=== PATIENT | female | born 1935 | race African-American/Black ===

== ENCOUNTER 2016-08-15 06:25 | Emergency (ER) | payer MEDICARE ==
[2015-11-16 13:45] VITALS: BMI 29.5
[~2016-08-15 06:25] MED LIST: ALDACTONE25 MG PO; ASPIRIN81 MG PO; COZAAR100 MG PO; LANTUS INSULIN10 ML SC; NORVASC10 MG PO; PLAVIX75 MG PO; XANAX0.25 MG PO
== END 2016-08-15 08:28 | disposition home or self-care (01) ==
LOC: D.ER 06:25
DX: S40.011A Contusion of right shoulder, initial encounter (principal); W19.XXXA Unspecified fall, initial encounter; Y93.89 Activity, other specified; Y92.019 Unspecified place in single-family (private) house as the place of occurrence of the external cause; I10 Essential (primary) hypertension; E11.9 Type 2 diabetes mellitus without complications; Z79.4 Long term (current) use of insulin

== ENCOUNTER 2016-12-01 16:52 | Outpatient (CLI) | payer MEDICARE ==
[2015-11-16 13:45] VITALS: BMI 29.5
== END 2016-12-01 17:32 ==
LOC: D.MAMMO 16:52
DX: Z12.31 Encounter for screening mammogram for malignant neoplasm of breast (principal)

== ENCOUNTER → 2017-02-16 19:12 | Outpatient (CLI) | payer MEDICARE ==
[2015-11-16 13:45] VITALS: BMI 29.5
[2017-02-16 20:03] LABS: ALBUMIN 4.2 g/dL (3.4-5.0); ANION GAP 14.5 mmol/L (8-16); BILIRUBIN - TOTAL 0.4 mg/dL (0.2-1.3); CALCIUM 10.5 mg/dL (8.5-10.1); CARBON DIOXIDE 25.7 mmol/L (21.0-32.0); CHOL - HDL RATIO 2.6 ratio (2.3-4.1); CREATININE - SERUM 1.1 mg/dL (0.6-1.3); LDL-HDL RATIO 1.2 ratio (1.5-3.5); POTASSIUM - SERUM 4.2 mmol/L (3.5-5.1); PROTEIN - SERUM 7.5 g/dL (6.4-8.2)
== END | disposition home or self-care (01) ==
LOC: D.LABREF 19:12
PROVIDERS: Family Medicine
DX: E11.65 Type 2 diabetes mellitus with hyperglycemia (principal); E55.9 Vitamin D deficiency, unspecified; R60.0 Localized edema

== ENCOUNTER → 2018-01-19 12:44 | Outpatient (CLI) | payer MEDICARE ==
[2015-11-16 13:45] VITALS: BMI 29.5
== END | disposition home or self-care (01) ==
LOC: D.US 12:44
DX: R79.1 Abnormal coagulation profile (principal)

== ENCOUNTER → 2018-10-16 08:50 | Outpatient (CLI) | payer MEDICARE ==
[2015-11-16 13:45] VITALS: BMI 29.5
== END | disposition home or self-care (01) ==
LOC: D.US 08:50
PROVIDERS: ATTEND Internal Medicine Nephrology
DX: I12.9 Hypertensive chronic kidney disease with stage 1 through stage 4 chronic kidney disease, or unspecified chronic kidney disease (principal); N18.4 Chronic kidney disease, stage 4 (severe); E03.9 Hypothyroidism, unspecified; R80.0 Isolated proteinuria

== ENCOUNTER → 2018-10-18 09:51 | Outpatient (CLI) | payer MEDICARE ==
[2015-11-16 13:45] VITALS: BMI 29.5
--- NOTE | 2018-10-23 12:26 | EC ---
PATIENT:REBECCA HEALY DATE OF SERVICE: 10/18/18 SEX: F MEDICAL RECORD: [id number] DATE OF : 39 LOCATION:D[facility] AGE OF PATIENT: 83 ADMISSION DATE: 10/18/18 REFERRING PHYSICIAN: INTERPRETING PHYSICIAN: LINDEN DE GUZMAN MD ECHOCARDIOGRAM REPORT ECHO CHARGES 4 ECHO COMPLETE Date: 10/18/18 CLINICAL DIAGNOSIS: CAD HX OF HTN ECHOCARDIOGRAPHIC MEASUREMENTS (adult normal given) AC root (d.<3.7cm) 3.3 cm LV Septum d (<1.2 cm> 1.3 cm Valve Excursion 1.6 cm LV Septum (systole) 1.5 cm Left Atria (s.<4.0cm> 3.7 cm LVPW d(<1.2cm) 1.7 cm RV (d.<2.3cm) 3.3 cm LVPW (sytole) 1.9 cm LV diastole(<5.6CM) 4.9 cm MV E-F(>70mm/sec) cm LV systole 3.4 cm LVOT Diameter 1.8 cm MV exc.(>10mm) 1.4 cm Est.ejection fraction (50-75%) % DOPPLER: LVIT cm/sec A 115 cm/sec E 86.0 cm/sec LA cm/sec RVSP 28 mmHg LVOT 122 cm/sec AOP1/2T m/s Asc. Ao 160 cm/sec RVOT 92 cm/sec RA cm/sec PA 131 cm/sec AV Gradient Peak 10.24mmHg AV Mean 5.48 mmHg AV Area 1.6 cm MV Gradient Peak 8.90 mmHg MV Mean 2.45 mmHg MV Area cm COMMENTS: Interventional Radiology Rn: Erasmo ALFARO Private Pilot: 3 Dr. Patrick TAPE# PACS Pericardial Effusion N DATE OF SERVICE: 10/18/2018 Adequate 2-D echo, color-flow and spectral Doppler, and M-mode. Mild LVH. LV internal dimensions are normal. Wall motion is normal. EF is greater than or equal to 55%. Aortic valve sclerosis without stenosis by Doppler interrogation. Left atrium is normal at 3.7 cm. Mitral valve shows no prolapse. Trace MR. Right-sided chambers are grossly normal. Mild TR. TRANSINT:[id number] Voice Confirmation ID: [id number] DOCUMENT ID: [id number] ECHOCARDIOGRAM REPORT [id number] REBECCA HEALY GREGORY A MD at 1226 CC: [id number] DICTATION DATE: 10/22/18 1336 WEB SITE MANAGER: 10/22/18 1450 DEP CLI 10/18/18 [address] [place] [address]
== END | disposition home or self-care (01) ==
LOC: D.HCCARDIO 09:51
PROVIDERS: ATTEND Internal Medicine Interventional Cardiology
DX: I25.10 Atherosclerotic heart disease of native coronary artery without angina pectoris (principal)

== ENCOUNTER 2019-02-18 09:00 | Outpatient (CLI) | payer MEDICARE ==
[~2019-02-18] VITALS: Ht 175.3 cm; Wt 90.9 kg
[2019-02-18 09:51] VITALS: Ht 175.3 cm; Wt 90.9 kg
--- NOTE | 2019-02-18 11:15 | NUR ---
1000 ROOM CHECK, IV INFUSING WITHOUT PROBLEMS 1030 RATE INCREASED, INFUSIG WELL 1100 IV AT OPEN RATE DENIES PROBLEMS 1115 NEAR COMPLETION
--- NOTE | 2019-02-18 11:23 | NUR ---
1120 IV SALINE LOCK, CT NOTIFIED (JOANNE BELLE RN). PT. UP TO BR VOIDS.
== END 2019-02-18 11:40 | disposition home or self-care (01) ==
LOC: D.CT 09:00
PROVIDERS: ATTEND Internal Medicine Nephrology
DX: N28.1 Cyst of kidney, acquired (principal)

== ENCOUNTER → 2019-10-30 10:06 | Outpatient (CLI) | payer MEDICARE ==
[2019-02-18 09:51] VITALS: BMI 29.6
--- NOTE | 2019-10-31 10:33 | EC ---
PATIENT:REBECCA HEALY DATE OF SERVICE: 10/30/19 SEX: F MEDICAL RECORD: [id number] DATE OF : 39 [facility] AGE [facility] PAT[facility]: 84 ADMISSION DATE: 10/30/19 REFERRING PHYSICIAN: INTERPRETING PHYSICIAN: LINDEN DE GUZMAN MD ECHOCARDIOGRAM REPORT ECHO CHARGES 4 ECHO COMPLETE Date: 10/30/19 CLINICAL DIAGNOSIS: CAD ECHOCARDIOGRAPHIC MEASUREMENTS (adult normal given) AC root (d.<3.7cm) 2.6 cm LV Septum d (<1.2 cm> 1.3 cm Valve Excursion 1.4 cm LV Septum (systole) 1.7 cm Left Atria (s.<4.0cm> 4.0 cm LVPW d(<1.2cm) 1.3 cm RV (d.<2.3cm) 3.7 cm LVPW (sytole) 1.5 cm LV diastole(<5.6CM) 4.5 cm MV E-F(>70mm/sec) cm LV systole 2.3 cm LVOT Diameter 1.7 cm MV exc.(>10mm) 1.4 cm Est.ejection fraction (50-75%) % DOPPLER: LVIT cm/sec A 137.0cm/sec E 77.0 cm/sec LA cm/sec RVSP 34 mmHg LVOT 136 cm/sec AOP1/2T m/s Asc. Ao 170 cm/sec RVOT 84 cm/sec RA cm/sec PA 126 cm/sec AV Gradient Peak 11.51mmHg AV Mean 6.47 mmHg AV Area 1.9 cm MV Gradient Peak 9.19 mmHg MV Mean 2.94 mmHg MV Area cm COMMENTS: Cocktail Waitress: 2 JOSE ALFARO Flipping Machine Operator: 3 Dr. Patrick TAPE# PACS Pericardial Effusion N DATE OF SERVICE: Adequate 2D, color flow imaging, spectral Doppler, and M-Mode. Borderline LVH. LV internal dimension is normal. Wall motion is normal. EF is greater than or equal to 55%. Aortic valve is tricuspid with no evidence of stenosis by Doppler interrogation. Left atrium is normal at 4.0 cm. Mitral valve shows no prolapse. Trace MR. Right-sided chambers are grossly normal. Trace TR. ECHOCARDIOGRAM REPORT [id number] REBECCA HEALY TRANSINT:[id number] Voice Confirmation ID: [id number] DOCUMENT ID: [id number] LINDEN DE GUZMAN MD at 1033 CC: [id number] DICTATION DATE: 10/31/19825 FREQUENCY CHECKER: 10/31/19 1010 [facility] CLI 10/30/19 [address] [place] [address]
== END | disposition home or self-care (01) ==
LOC: D.HCCECHO 10:06
PROVIDERS: ATTEND Internal Medicine Interventional Cardiology
DX: I25.10 Atherosclerotic heart disease of native coronary artery without angina pectoris (principal)

== ENCOUNTER 2020-01-14 13:13 | Outpatient (CLI) | payer MEDICARE ==
[~2020-01-14] VITALS: Ht 175.3 cm; Wt 90.9 kg
[2020-01-14 14:54] VITALS: Ht 175.3 cm; Wt 90.9 kg
--- NOTE | 2020-01-14 15:13 | NUR ---
1510 ADA FINGER FOOD DIET SERVED.
[2020-01-14 15:42] LABS: % SATURATION 5 % (15-55); IRON 28 ug/dl (35-150); TOTAL IRON BIND CAPACITY 482 ug/dl (260-445)
[2020-01-14 15:47] LABS: UNSAT IRON BIND CAPACITY 454 ug/dl (150-375)
--- NOTE | 2020-01-14 16:04 | NUR ---
1552 PREMEDS WERE GIVEN PER E-MAR. PT. UP TO BATHROOM, VOIDS LG. AMT. BLOOD CHECKED AT BEDSIDE BY THIS NURSE AND DAYRON KEYES RN. INITATED AT 50/CC/HR.
--- NOTE | 2020-01-14 16:09 | NUR ---
1605 DOSING, AROUSES WITH V.S. CHECK, DENIES PROBLEMS, RATE INCREASED TO 200/CC/HR.
--- NOTE | 2020-01-14 16:47 | NUR ---
1647 DENIES PROBLEMS WITH TRANSFUSION, IV SITE GOOD, RATE INCREASED TO 250/CC/HR.
--- NOTE | 2020-01-14 17:09 | NUR ---
6020 ROOM CHECK, PT. WATCHING TV. STATES " I'M DOING GOOD." BLOOD IS INFUSING WELL.
--- NOTE | 2020-01-14 17:27 | NUR ---
1727 1ST UNIT BLOOD COMPLETED, LINE BEING FLUSHED WITH NS.
--- NOTE | 2020-01-14 17:45 | NUR ---
1734 2ND UNIT CHECKED AT BEDSIDE BY THIS NURSE AND NIMESH JONES RN, INITIATED AT 50/CC/HR. DENIES NEEDS.
--- NOTE | 2020-01-14 17:59 | NUR ---
1755 DENIES PROBLEMS, RATE INCREASED TO 275/CC/HR. IV SITE GOOD.
--- NOTE | 2020-01-14 18:40 | NUR ---
1835 ROOM CHECK, BLOOD GOING WELL, PT REQUESTS SOMETHING TO EAT, PEANUT BUTTER AND CRACKERS SERVED.
--- NOTE | 2020-01-14 18:45 | NUR ---
1845 PT'S SON ARRIVED TO ROOM.
--- NOTE | 2020-01-14 19:15 | NUR ---
190 BLOOD HAS COMPLETED, LINE BEING FLUSHED WITH NS. PT. UP TO BR VOIDS LG. AMT. DENIES PROBLEMS WITH TRANSFUSION. STATES SHE IS DUE HER BP PILL AND WILL GO HOME AND TAKE HER BP PILL.
--- NOTE | 2020-01-14 19:40 | NUR ---
1930 IV DC'D WITH CATH INTACT. DC INSTS REVIEWED, VOICED UNDERSTANDING 193 TO LAB TO HAVE LABS DRAWN THAT WERE UNABLE TO OBTAIN PREVIOUSLY. DC INSTS. GIVEN. VOICED UNDERSTANDING
[2020-01-14 20:46] LABS: BILIRUBIN - TOTAL 0.58 mg/dL (0.2-1.3); THYROID STIMULATING HORMONE 0.22 uIU/mL (0.36-3.74)
[2020-01-14 21:44] LABS: ERYTHROCYTE SEDIMENTATION RATE 11 mm/hr (0-30)
== END 2020-01-14 19:35 | disposition home or self-care (01) ==
LOC: D.OPS 13:13
PROVIDERS: ATTEND Internal Medicine Hematology & Oncology
DX: D64.9 Anemia, unspecified (principal)

== ENCOUNTER 2020-08-23 12:07 | Inpatient (IN) | payer MEDICARE ==
[~2020-08-23] VITALS: Ht 167.6 cm; Wt 87.1 kg
[2020-08-23 12:30] VITALS: BP 197/79
[2020-08-23 13:00] LABS: BASOPHILS 0.1 % (0-2); EOSINOPHILS 0.1 % (0-7); HEMATOCRIT 32.8 % (36.0-48.0); HEMOGLOBIN 10.8 g/dL (12-16); IMMATURE GRANULOCYTES 0.5 % (0-5); LYMPHOCYTE ABS# 0.78 10x3/uL (1.18-3.74); LYMPHOCYTES 8.4 % (15-50); MCH 26.6 pg (26.0-34.0); MCHC 32.9 g/dL (31.0-37.0); MCV 80.8 fL (80.0-100.0); MEAN PLATELET VOLUME 9.2 fL (7.4-10.4); MONOCYTES 6.9 % (2-11); NEUTROPHIL ABS# 7.75 10x3/uL (1.56-6.13); RBC 4.06 10x6/uL (4.00-5.40); RDW 21.2 % (11.5-14.5); WBC 9.2 10x3/uL (4.8-10.8)
[2020-08-23 13:01] LABS: PLATELET COUNT 221 10x3/uL (130-400)
[2020-08-23 13:01] LABS: BILIRUBIN NEGATIVE (NEGATIVE); KETONE NEGATIVE (NEGATIVE); NITRITE NEGATIVE (NEGATIVE); UROBILINOGEN NORMAL mg/dL (< 2)
[2020-08-23 13:03] LABS: BACTERIA MODERATE HPF (NONE SEEN); SQUAMOUS EPITHELIAL 0-5 HPF (0-4)
[2020-08-23 13:13] LABS: ANION GAP 14.6 mmol/L (8-16); CALCIUM 9.6 mg/dL (8.5-10.1); CARBON DIOXIDE 22.8 mmol/L (21.0-32.0); CREATININE - SERUM 2.2 mg/dL (0.6-1.3); POTASSIUM - SERUM 4.4 mmol/L (3.5-5.1)
[2020-08-23 13:19] LABS: ALBUMIN 3.4 g/dL (3.4-5.0); BILIRUBIN - TOTAL 0.36 mg/dL (0.2-1.3); MAGNESIUM - SERUM 3.3 mg/dL (1.8-2.4); PROTEIN - SERUM 7.3 g/dL (6.4-8.2)
--- NOTE | 2020-08-23 14:13 | NUR ---
PT BG WAS 243 AT THIS TIME
[2020-08-23 15:06] VITALS: BP 174/60
--- NOTE | 2020-08-23 15:13 | NUR ---
PT REPORT GIVEN TO KANA ORTIZ, VERBAL ACKNOWLEDGEMENT OBTAINED
[2020-08-23 15:30] VITALS: BP 215/72; BMI 31.0
--- NOTE | 2020-08-23 15:30 | NUR ---
RECEIVED TO ROOM 2211 VIA WC FROM ER. A/O X3. SKIN INTACT WITHOUT REDNESS EXCEPT SMALL ABRASION TO LEFT ELBOW AND RIGHT KNEE. IV TO LEFT FOREARM IS PATENT WITHOUT REDNESS AT INSERTION SITE. DENIES NEEDS.
--- NOTE | 2020-08-23 16:23 | NUR ---
BP ELEVATED AT THIS TIME. CECE SERNA APN NOTIFIED OF SAME NEW ORDERS RECEIVED. GIVNE 10MG HYDRALYZINE SLOW IVP FOR SAME. WILL MONITOR.
[2020-08-23 17:02] VITALS: BP 183/92
[2020-08-23 17:16] VITALS: BP 170/68
--- NOTE | 2020-08-23 17:19 | NUR ---
BP DOWN TO 170/68. UP TO BR WITH ONE PERSON SBA. VOIDED WITHOUT DIFFICUTLY. ATE MOST OF SUPPER. NO CHANGES NOTED.
--- NOTE | 2020-08-23 18:14 | NUR ---
ATE ABOUT 75% OF SUPPER. ASSISTED WITH BED BATH PER STAFF. NO CHANGES NOOTED. DENIES NEEDS.
[2020-08-23 20:00] VITALS: BP 137/59
--- NOTE | 2020-08-23 20:30 | NUR ---
RESTING QUIELTY WITH NO DISTRESS NOTED. BS 55 SNACK GIVEN DENIES DIZINESS AT THIS TIME.IV TO LFA INTACT WITHOUT REDNESS OR EDEMA NOTED.FALL PRECAUTIONS IN PLACE.BED ALARM ON.
[2020-08-23 20:41] LABS: % SATURATION 7 % (15-55); IRON 25 ug/dl (35-150); TOTAL IRON BIND CAPACITY 318 ug/dl (260-445); UNSAT IRON BIND CAPACITY 293 ug/dl (150-375)
[2020-08-23 20:54] LABS: APTT 33.3 SECONDS (22.8-39.4); INR 1.06 (0.85-1.17); PROTIME 12.8 SECONDS (11.6-15.0)
--- NOTE | 2020-08-23 21:30 | NUR ---
BS 111 AT THIS TIME. NO COMPALITNS VOICED,
[2020-08-24] VITALS: BP 123/45
[2020-08-24 00:31] LABS: CKMB 5.8 U/L (0.0-3.6)
[2020-08-24 00:33] LABS: CREATINE KINASE 1335 UL (21-215); TROPONIN-I 0.446 ng/mL (0.000-0.060)
--- NOTE | 2020-08-24 03:44 | NUR ---
I have reviewed this patient and I concur with the Shift Assessment completed by the Licensed Practical Nurse today this shift.
[2020-08-24 04:00] VITALS: BP 158/64
--- NOTE | 2020-08-24 05:43 | NUR ---
FSBS 24. RETAKEN X 2 PER PATIENT REQUEST WITH RESULTS 26,25. STAT GLUCOSE TO LAB WITH RESULTS AT 25. PATIENT AWAKE AND TALKING.D5W 25 ML GIVEN FOR CRITICAL GLUCOSE.SNACK GIVEN.
[2020-08-24 05:47] LABS: ALKALINE PHOSPHATASE 79 U/L (30-120); ALT (SGPT) 75 U/L (10-68); BILIRUBIN - TOTAL 0.29 mg/dL (0.2-1.3); CALCIUM 9.2 mg/dL (8.5-10.1); CARBON DIOXIDE 22.8 mmol/L (21.0-32.0); CHLORIDE - SERUM 110 mmol/L (98-107); POTASSIUM - SERUM 4.5 mmol/L (3.5-5.1); PROTEIN - SERUM 6.1 g/dL (6.4-8.2); SODIUM 142 mmol/L (136-145); UREA NITROGEN 61 mg/dL (7-18); eGFR NON AFRICAN AMERICAN 25 mL/min (90-120)
[2020-08-24 05:49] LABS: CALC OSMOLALITY 295 mosm/kg (275-300); CREATINE KINASE 1271 UL (21-215); MAGNESIUM - SERUM 3.5 mg/dL (1.8-2.4); TROPONIN-I 0.561 ng/mL (0.000-0.060)
[2020-08-24 05:51] LABS: GLUCOSE 24 mg/dL (74-106)
--- NOTE | 2020-08-24 06:20 | NUR ---
FSBS 116. STATES FEELS BETTER
[2020-08-24 07:49] VITALS: BP 178/59
[2020-08-24 10:02] LABS: BASOPHILS 0.3 % (0-2); EOSINOPHILS 0.1 % (0-7); HEMATOCRIT 33.8 % (36.0-48.0); IMMATURE GRANULOCYTES 0.3 % (0-5); LYMPHOCYTE ABS# 1.73 10x3/uL (1.18-3.74); LYMPHOCYTES 22.2 % (15-50); MCH 26.6 pg (26.0-34.0); MCHC 32.5 g/dL (31.0-37.0); MCV 81.8 fL (80.0-100.0); MEAN PLATELET VOLUME 9.8 fL (7.4-10.4); MONOCYTES 9.4 % (2-11); NEUTROPHIL ABS# 5.27 10x3/uL (1.56-6.13); NEUTROPHILS 67.7 % (40-80); PLATELET COUNT 219 10x3/uL (130-400); RBC 4.13 10x6/uL (4.00-5.40); RDW 21.5 % (11.5-14.5); WBC 7.8 10x3/uL (4.8-10.8)
[2020-08-24 12:04] VITALS: BP 159/70
[2020-08-24 12:06] LABS: CKMB 7.2 U/L (0.0-3.6)
[2020-08-24 12:07] LABS: CREATINE KINASE 1216 UL (21-215); TROPONIN-I 0.613 ng/mL (0.000-0.060)
[2020-08-24 12:57] VITALS: BMI 31.0
[2020-08-24 16:51] VITALS: BP 177/59
[2020-08-24 21:33] VITALS: BP 156/52
[2020-08-25 00:39] VITALS: BP 144/53
--- NOTE | 2020-08-25 05:00 | NUR ---
FSBS 55. MILK AND SNACK GIVEN. CPOC.
[2020-08-25 05:15] VITALS: BP 185/64
--- NOTE | 2020-08-25 05:29 | NUR ---
I have reviewed this patient and I concur with the Shift Assessment completed by the Licensed Practical Nurse today this shift.
--- NOTE | 2020-08-25 05:29 | NUR ---
I have reviewed this patient and I concur with the Shift Assessment completed by the Licensed Practical Nurse today this shift.
[2020-08-25 05:54] LABS: BASOPHILS 0.2 % (0-2); EOSINOPHILS 3.2 % (0-7); HEMATOCRIT 27.1 % (36.0-48.0); IMMATURE GRANULOCYTES 0.2 % (0-5); LYMPHOCYTE ABS# 2.15 10x3/uL (1.18-3.74); LYMPHOCYTES 36.2 % (15-50); MCH 25.9 pg (26.0-34.0); MCHC 32.1 g/dL (31.0-37.0); MCV 80.7 fL (80.0-100.0); MEAN PLATELET VOLUME 9.6 fL (7.4-10.4); MONOCYTES 13.3 % (2-11); NEUTROPHIL ABS# 2.79 10x3/uL (1.56-6.13); NEUTROPHILS 46.9 % (40-80); PLATELET COUNT 202 10x3/uL (130-400); RBC 3.36 10x6/uL (4.00-5.40); RDW 21.3 % (11.5-14.5); WBC 5.9 10x3/uL (4.8-10.8)
[2020-08-25 06:10] LABS: ALBUMIN 2.6 g/dL (3.4-5.0); ANION GAP 9.7 mmol/L (8-16); BILIRUBIN - TOTAL 0.2 mg/dL (0.2-1.3); CALCIUM 8.9 mg/dL (8.5-10.1); CARBON DIOXIDE 24.2 mmol/L (21.0-32.0); CREATININE - SERUM 2.1 mg/dL (0.6-1.3); MAGNESIUM - SERUM 2.9 mg/dL (1.8-2.4); POTASSIUM - SERUM 3.9 mmol/L (3.5-5.1); PROTEIN - SERUM 5.9 g/dL (6.4-8.2)
[2020-08-25 06:20] LABS: HEMOGLOBIN 8.7 g/dL (12-16)
--- NOTE | 2020-08-25 06:20 | NUR ---
RECHECKED FSBS, 86. CTM.
--- NOTE | 2020-08-25 06:45 | NUR ---
RECEIVED BEDSIDE REPORT. PT LAYING IN BED, A&O X4. PIV TO LEFT FA, PATENT AND INFUSING, NO REDNESS OR SWELLLING. PT ABLE TO AMBULATE AD EMIL. EDUCATED PT ON CL AND NEEDS, VERBALIZED UNDERSTANDING. BED LOW, CL IN REACH.
[2020-08-25 07:43] VITALS: BP 177/54
[2020-08-25 12:35] VITALS: BP 134/59; BP 145/68
[2020-08-25 13:54] VITALS: Ht 167.6 cm; Wt 87.1 kg
[2020-08-25 15:00] VITALS: BP 140/62
--- NOTE | 2020-08-26 02:11 | NUR ---
REC;D WALKING ROUNDS CHGE OF SHIFT.EYES CLOSED RESP. DEEP AND EVEN.WILL CONTINUE TO MONITOR FOR ANY CHGES AND FOLLOW CURRENT PLAN OF CARE.
--- NOTE | 2020-08-26 05:00 | NUR ---
I have reviewed this patient and I concur with the Shift Assessment completed by the Licensed Practical Nurse today this shift.
[2020-08-26 05:36] LABS: MCH 26.2 pg (26.0-34.0); MCHC 30.8 g/dL (31.0-37.0); MCV 85.2 fL (80.0-100.0); MEAN PLATELET VOLUME 10.4 fL (7.4-10.4); NEUTROPHILS 55.2 % (40-80); PLATELET COUNT 176 10x3/uL (130-400); RBC 3.05 10x6/uL (4.00-5.40); RDW 21.8 % (11.5-14.5); WBC 4.9 10x3/uL (4.8-10.8)
[2020-08-26 05:51] LABS: ALBUMIN 2.5 g/dL (3.4-5.0); ANION GAP 11.6 mmol/L (8-16); BILIRUBIN - TOTAL 0.21 mg/dL (0.2-1.3); CALCIUM 8.8 mg/dL (8.5-10.1); CARBON DIOXIDE 23.5 mmol/L (21.0-32.0); MAGNESIUM - SERUM 2.7 mg/dL (1.8-2.4); POTASSIUM - SERUM 4.1 mmol/L (3.5-5.1); PROTEIN - SERUM 5.7 g/dL (6.4-8.2)
[2020-08-26 08:17] VITALS: BP 169/52
[2020-08-26 12:12] VITALS: BP 174/62
--- NOTE | 2020-08-26 13:28 | NUR ---
REHAB PRESCREENING Rehab referral received and chart reviewed. PT and OT have signed off on this patient. She does not meet admission criteria for ARU. Thank you for this referral! Anahi Osullivan, MACHINE BINDER STRIPPER Rehab PD
[2020-08-26 17:30] VITALS: BP 163/61
--- NOTE | 2020-08-26 19:00 | NUR ---
BEDSIDE SHIFT REPORT COMPLETED PT AWAKE ALERT SITTING IN CHAIR AT BS, NO ISSUES REPORTED NO DISTRESS NOTED WILL CONTINUE TO MONITOR
[2020-08-26 20:59] VITALS: BP 145/60
[2020-08-27] VITALS: BP 189/77
[2020-08-27 04:00] VITALS: BP 165/52
[2020-08-27 06:30] LABS: BASOPHILS 0.2 % (0-2); EOSINOPHILS 2.6 % (0-7); HEMATOCRIT 24.7 % (36.0-48.0); HEMOGLOBIN 7.7 g/dL (12-16); IMMATURE GRANULOCYTES 0.4 % (0-5); LYMPHOCYTE ABS# 1.82 10x3/uL (1.18-3.74); LYMPHOCYTES 37.1 % (15-50); MCH 25.5 pg (26.0-34.0); MCHC 31.2 g/dL (31.0-37.0); MEAN PLATELET VOLUME 9.5 fL (7.4-10.4); MONOCYTES 12.2 % (2-11); NEUTROPHIL ABS# 2.33 10x3/uL (1.56-6.13); NEUTROPHILS 47.5 % (40-80); PLATELET COUNT 192 10x3/uL (130-400); RBC 3.02 10x6/uL (4.00-5.40); RDW 20.4 % (11.5-14.5); WBC 4.9 10x3/uL (4.8-10.8)
[2020-08-27 06:39] LABS: MCV 81.8 fL (80.0-100.0)
[2020-08-27 07:02] LABS: ALBUMIN 2.5 g/dL (3.4-5.0); ANION GAP 10.2 mmol/L (8-16); BILIRUBIN - TOTAL 0.19 mg/dL (0.2-1.3); CALCIUM 8.8 mg/dL (8.5-10.1); CREATININE - SERUM 1.7 mg/dL (0.6-1.3); MAGNESIUM - SERUM 2.6 mg/dL (1.8-2.4); POTASSIUM - SERUM 4.2 mmol/L (3.5-5.1); PROTEIN - SERUM 5.2 g/dL (6.4-8.2)
[2020-08-27 08:16] VITALS: BP 169/59
--- NOTE | 2020-08-27 09:59 | NUR ---
I have reviewed this patient and I concur with the Shift Assessment completed by the Licensed Practical Nurse today this shift.
--- NOTE | 2020-08-27 11:51 | NUR ---
PTIENT SITTING UP IN CHAIR, ABLE TO USE BATHROOM AND GIVE SAMPLE FOR OCCULT BLOOD. PATIENT BLOOD SUGAR IS 215 HAS ASKED FOR SENIOR BUSINESS CONSULTANT TO COME AND SPEAK TO HER ABOUT DIABETES AND EDUCATE ON DIABETES. PLACING ORDER FOR SENIOR BUSINESS CONSULTANT CONSULT. CONTINUE WITH PLAN OF CARE
[2020-08-27] MEDS ORDERED: MIRALAX17 GM PO ×2 (12:08→14:13)
[2020-08-27] MEDS ORDERED: FLORAJEN3 CAPS460 MG PO (12:09)
[2020-08-27] MEDS ORDERED: LANTUS INS100 UNITS/ SC (12:09)
[2020-08-27] MEDS ORDERED: HYDRALAZINE HCL10 MG PO (12:10)
[2020-08-27] MEDS ORDERED: OMNICEF300 MG PO (12:10)
[2020-08-27 13:11] VITALS: BP 182/56
--- NOTE | 2020-08-27 13:42 | NUR ---
PATIENT WALKED 250 FEET INDEPENDENTLY IN [place].
[2020-08-27] MEDS ORDERED: FERROUS SULFAT325 MG PO (14:13)
--- NOTE | 2020-08-27 16:44 | NUR ---
OT NOTE: PT COMPLETED TOILETING WITH MOD I. PT COMPLETED ADL MOB WITH MOD I. PT COMPLETED HYGIENE WITH MOD I. OT TO D/C PER OTR. 830-9 THANK YOU,CLAUDIA SHULTZ
--- NOTE | 2020-08-27 18:40 | MORECARE ---
CASE MANAGEMENT DISCHARGE SUMMARY PATIENT: ZO HEALY UNIT: [id number] ADM DATE: 08/23/20 AGE: 85 : 37 SEX: F ROOM/BED: D.[facility] AUTHOR: GMAA,DOC PHYSICIAN: REFERRING PHYSICIAN: YVONNE WATSON MD DATE OF SERVICE: 08/27/20 Case Management Discharge Planning Summary DCP REVIEW SUMMARY ANTICIPATED D/C DATE: EXPECTED LOS : CASE STATUS: DCP Initiated INITIAL REVIEW: 08/25/2020 INITIAL REVIEWER: Treasure Zendejas FINAL DISCHARGE DISPOSITION: 70 : Discharged/Trans to Another Type of Health Care Institution Not Defined in the Code List FINAL REVIEWER: FINAL REVIEW DATE: DCP Focus Questions & Answers - Added on: QUESTION: ANSWER : PATIENT: ZO HEALY ENCOUNTER: [id number] MEDICAL RECORD#: [id number] ADMISSION DATE: 08/23/2020 DISCHARGE DATE: 08/27/2020 ATTENDING MD: YVONNE RIVERA : AGE: 85 MARITAL STATUS: W DC PLAN ID: [id number] FACILITY: [facility] PRINTED ON: 08/27/20 18:40 CT All edits/amendments must be made on the electronic document DICTATION DATE: 08/27/201839 FUEL OIL CLERK: LUMA 08/27/201839 RPT#: [id number] DC DATE:08/27/20 STATUS: DIS IN [facility] [address] [place] [address] END OF REPORT
--- NOTE | 2020-08-27 18:52 | MORECARE ---
CASE MANAGEMENT DISCHARGE SUMMARY PATIENT: ZO HEALY UNIT: [id number] ADM DATE: 08/23/20 AGE: 85 : 37 SEX: F ROOM/BED: D.2211 AUTHOR: ROBYN MALLOY PHYSICIAN: REFERRING PHYSICIAN: YVONNE WATSON MD DATE OF SERVICE: 08/27/20 Case Management Discharge Planning Summary COMMENTS ENTERED DATE: 08/27/20 18:42 CT COMMENT TYPE: Discharge Planning REVIEWER: Treasure Zendejas imm served and explained at 12:30 to her placed on chart ENTERED DATE: 08/27/20 18:39 CT COMMENT TYPE: Discharge Planning REVIEWER: Treasure Zendejas late entry 08/27/20 @ 12:30 CM met with patient to complete initial dc planning assessment. CM educated patient on the CM role and verbal consent given by patient to complete assessment. Patient lives at home by herself where she states she is independent with her care. At discharge patient plans to return home and feels this is a safe discharge. CM discussed availability of home health, rehab services, and medical equipment. She would like home health and meet with anyone who takes her insurance. [place] [facility] takes her insurance and will be able to start seeing her next week. Her son Damion will be her peg driver home. She has a walker at home and a glucometer that she stated she knows how to use. I will have HH do diabetic education. Her PCP is Dr Garcia and she uses [facility] on [address]. Patient denied known discharge needs at this time. CM will continue to follow and will assist as needed with dc plans/needs. DCP REVIEW SUMMARY ANTICIPATED D/C DATE: EXPECTED LOS : CASE STATUS: DCP Initiated INITIAL REVIEW: 08/25/2020 INITIAL REVIEWER: Treasure Zendejas FINAL DISCHARGE DISPOSITION: 70 : Discharged/Trans to Another Type of Health Care Institution Not Defined in the Code List FINAL REVIEWER: FINAL REVIEW DATE: DCP Focus Questions & Answers - Added on: QUESTION: ANSWER : PROVIDER NETWORKING REVIEW DATE: 08/27/2020 SERVICE TYPE: Home Health Care (Non-Skilled) REVIEWER: Treasure Zendejas PROVIDER: FINAL PROVIDER? : FINAL DATE/TIME: CT PATIENT: ZO HEALY ENCOUNTER: [id number] MEDICAL RECORD#: [id number] ADMISSION DATE: 08/23/2020 DISCHARGE DATE: 08/27/2020 ATTENDING MD: YVONNE RIVERA : AGE: 85 MARITAL STATUS: W DC PLAN ID: [id number] FACILITY: [facility] PRINTED ON: 08/27/20 18:51 CT All edits/amendments must be made on the electronic document DICTATION DATE: 08/27/201850 MANUFACTURING ENGINEERING DIRECTOR: LUMA 08/27/201850 RPT#: [id number] DC DATE:08/27/20 STATUS: DIS IN [facility] [address] [place] [address] END OF REPORT
--- NOTE | 2020-08-28 09:51 | MORECARE ---
CASE MANAGEMENT DISCHARGE SUMMARY PATIENT: ZO HEALY UNIT: [id number] ADM DATE: 08/23/20 AGE: 85 : 37 SEX: F ROOM/BED: D.2211 AUTHOR: ROBYN MALLOY PHYSICIAN: REFERRING PHYSICIAN: YVONNE WATSON MD DATE OF SERVICE: 08/28/20 Case Management Discharge Planning Summary COMMENTS ENTERED DATE: 08/27/20 18:42 CT COMMENT TYPE: Discharge Planning REVIEWER: Treasure Zendejas imm served and explained at 12:30 to her placed on chart ENTERED DATE: 08/27/20 18:39 CT COMMENT TYPE: Discharge Planning REVIEWER: Treasure Zendejas late entry 08/27/20 @ 12:30 CM met with patient to complete initial dc planning assessment. CM educated patient on the CM role and verbal consent given by patient to complete assessment. Patient lives at home by herself where she states she is independent with her care. At discharge patient plans to return home and feels this is a safe discharge. CM discussed availability of home health, rehab services, and medical equipment. She would like home health and meet with anyone who takes her insurance. [facility] takes her insurance and will be able to start seeing her next week. Her son Damion will be her six horse hitch driver home. She has a walker at home and a glucometer that she stated she knows how to use. I will have HH do diabetic education. Her PCP is Dr Garcia and she uses [facility] on [address]. Patient denied known discharge needs at this time. CM will continue to follow and will assist as needed with dc plans/needs. DCP REVIEW SUMMARY ANTICIPATED D/C DATE: EXPECTED LOS : CASE STATUS: DCP Initiated INITIAL REVIEW: 08/25/2020 INITIAL REVIEWER: Treasure Zendejas FINAL DISCHARGE DISPOSITION: 70 : Discharged/Trans to Another Type of Health Care Institution Not Defined in the Code List FINAL REVIEWER: FINAL REVIEW DATE: DCP Focus Questions & Answers - Added on: QUESTION: ANSWER : PROVIDER NETWORKING REVIEW DATE: 08/27/2020 SERVICE TYPE: Home Health Care (Non-Skilled) REVIEWER: Treasure Zendejas PATIENT: ZO HEALY ENCOUNTER: [id number] MEDICAL RECORD#: [id number] ADMISSION DATE: 08/23/2020 DISCHARGE DATE: 08/27/2020 ATTENDING MD: YVONNE RIVERA : AGE: 85 MARITAL STATUS: W DC PLAN ID: [id number] FACILITY: [facility] PRINTED ON: 08/28/20 9:51 CT All edits/amendments must be made on the electronic document DICTATION DATE: 08/28/20950 LEAD CLINICAL RESEARCH COORDINATOR: LUMA 08/28/20950 RPT#: [id number] DC DATE:08/27/20 STATUS: DIS IN [facility] [address] [place] [address] END OF REPORT
== END 2020-08-27 16:36 | disposition home health service (06) | DRG 682 ==
LOC: D.ER 12:07 → D.MS 14:57
PROVIDERS: Family Medicine; ADMIT Family Medicine Adult Medicine; ATTEND Family Medicine Adult Medicine
DX: N17.9 Acute kidney failure, unspecified (principal); G93.41 Metabolic encephalopathy; N39.0 Urinary tract infection, site not specified; E11.649 Type 2 diabetes mellitus with hypoglycemia without coma; E86.0 Dehydration; D64.9 Anemia, unspecified; E83.42 Hypomagnesemia; E11.40 Type 2 diabetes mellitus with diabetic neuropathy, unspecified; E03.9 Hypothyroidism, unspecified; I10 Essential (primary) hypertension; I25.10 Atherosclerotic heart disease of native coronary artery without angina pectoris; F41.9 Anxiety disorder, unspecified; H40.9 Unspecified glaucoma; Z85.3 Personal history of malignant neoplasm of breast